=== PATIENT | female | born 1975 | race Caucasian/White ===

== ENCOUNTER → 2016-12-14 | Outpatient (CLI) | payer BC ==
[~2016-12-14] MED LIST: OXYC-57 PO; PRENTAB26 PO
--- NOTE | 2016-12-14 15:16 | DIAGNOSTIC IMAGING REPORT ---
OBSTETRICAL ULTRASOUND, TRANSABDOMINAL AND TRANSVAGINAL CLINICAL HISTORY: . Vaginal bleeding. Assess for ectopic . COMPARISON STUDY: None. FINDINGS: The uterus is retroflexed. Small bilateral ovarian cysts. Normal color flow to the bilateral ovaries. No pelvic free fluid. There is a single intrauterine gestational sac, yolk sac, and pole. The crown-rump length is 9.3 mm consistent with a 7 week and 0 day fetus. The heart rate was 143 bpm. IMPRESSION: A single viable 7 week and 0 day intrauterine gestation. heart rate was 143 bpm. Electronically signed by: Henry Klein M.D. 12/14/2016 3:15 PM Dictated Date/Time: 12/14/2016 3:12 PM
== END | disposition home or self-care (01) ==
LOC: C.ULTR 13:52
PROVIDERS: ATTEND Obstetrics & Gynecology
DX: O20.9 Hemorrhage in early pregnancy, unspecified (principal); Z3A.01 Less than 8 weeks gestation of pregnancy

== ENCOUNTER → 2016-12-28 | Outpatient (CLI) | payer BC ==
[2016-12-28 14:21] LABS: URINE APPEARANCE CLEAR (CLEAR); URINE BILIRUBIN NEG (NEG); URINE COLOR YELLOW; URINE NITRITE NEG (NEG); UROBILINOGEN NEG (NEG)
[2016-12-28 14:25] LABS: MANUAL MICROSCOPIC REQUIRED? NO; REVIEW REQ? NO
[2017-01-01 15:12] LABS: CHLAMYDIA TRACH RNA*** NOT DETECTED (NOT DETECTED); GC (NEIS GONORRHOEAE)RNA** NOT DETECTED (NOT DETECTED)
== END | disposition home or self-care (01) ==
LOC: C.LABSPEC 13:34
PROVIDERS: ATTEND Obstetrics & Gynecology
DX: O09.529 Supervision of elderly multigravida, unspecified trimester (principal)

== ENCOUNTER → 2017-01-03 | Outpatient (CLI) | payer BC ==
[2017-01-03 09:47] LABS: BASO % 0.4 %; BASO ABS # 0.02 K/uL (0-0.2); COMPLETE YES; EOS % 1.5 %; HEMATOCRIT 37.2 % (37-47); IG% 0.2 %; LYMPH % 28.3 %; LYMPH ABS # 1.32 K/uL (1.2-3.4); MEAN CELL VOLUME 90.1 fL (80-100); MEAN CORPUSCULAR HEMOGLOBIN 30.5 pg (25-34); MEAN CORPUSCULAR HGB CONC 33.9 g/dl (32-36); MEAN PLATELET VOLUME 9.3 fL (7.4-10.4); MONO % 11.3 %; NEUT % 58.3 %; PLATELET COUNT 261 K/uL (130-400); RED BLOOD COUNT 4.13 M/uL (4.2-5.4); WHITE BLOOD COUNT 4.67 K/uL (4.8-10.8)
== END | disposition home or self-care (01) ==
LOC: C.LAB 06:33
PROVIDERS: ATTEND Obstetrics & Gynecology
DX: O09.529 Supervision of elderly multigravida, unspecified trimester (principal); Z3A.00 Weeks of gestation of pregnancy not specified

== ENCOUNTER → 2017-02-22 | Outpatient (CLI) | payer BC ==
[2017-02-22 13:13] LABS: BASO % 0.2 %; BASO ABS # 0.01 K/uL (0-0.2); COMPLETE YES; EOS % 0.5 %; HEMATOCRIT 32.1 % (37-47); IG% 0.2 %; LYMPH % 28.1 %; LYMPH ABS # 1.63 K/uL (1.2-3.4); MEAN CELL VOLUME 91.2 fL (80-100); MEAN CORPUSCULAR HEMOGLOBIN 30.1 pg (25-34); MEAN PLATELET VOLUME 8.6 fL (7.4-10.4); PLATELET COUNT 246 K/uL (130-400); RED BLOOD COUNT 3.52 M/uL (4.2-5.4)
[2017-02-22 14:00] LABS: FERRITIN 312.5 ng/ml (8.0-388.0)
[2017-02-22 14:22] LABS: GTGD 50 Grams
== END | disposition home or self-care (01) ==
LOC: C.LAB1850 11:44
PROVIDERS: ATTEND Obstetrics & Gynecology
DX: O09.529 Supervision of elderly multigravida, unspecified trimester (principal); Z3A.00 Weeks of gestation of pregnancy not specified; E55.9 Vitamin D deficiency, unspecified; E61.1 Iron deficiency

== ENCOUNTER → 2017-05-07 | Outpatient (CLI) | payer BC ==
[2017-05-07 16:29] LABS: URINE APPEARANCE CLEAR (CLEAR); URINE BILIRUBIN NEG (NEG); URINE COLOR YELLOW; URINE EPITHELIAL CELL AUTO >30 /lpf (0-5); URINE NITRITE NEG (NEG); URINE PH 6.5 (4.5-7.5); URINE SPECIFIC GRAVITY 1.016 (1.000-1.030); UROBILINOGEN NEG (NEG)
[2017-05-07 16:30] LABS: MANUAL MICROSCOPIC REQUIRED? NO; REVIEW REQ? NO
== END | disposition home or self-care (01) ==
LOC: C.LABSPEC 15:54
PROVIDERS: ATTEND Obstetrics & Gynecology
DX: O09.523 Supervision of elderly multigravida, third trimester (principal)

== ENCOUNTER → 2017-05-07 | Outpatient (CLI) | payer BC ==
[2017-05-07 14:38] LABS: HEMATOCRIT 31.9 % (37-47)
[2017-05-07 15:15] LABS: GTGD 50 Grams
== END | disposition home or self-care (01) ==
LOC: C.LAB1850 13:36
PROVIDERS: ATTEND Obstetrics & Gynecology
DX: O09.523 Supervision of elderly multigravida, third trimester (principal)

== ENCOUNTER → 2017-05-21 | Outpatient (CLI) | payer BC | END | disposition home or self-care (01) | LOC: C.LAB1850 07:32 | PROVIDERS: ATTEND Obstetrics & Gynecology | DX: O28.9 Unspecified abnormal findings on antenatal screening of mother (principal); Z3A.00 Weeks of gestation of pregnancy not specified ==

== ENCOUNTER 2017-07-08 14:07 | Outpatient (CLI) | payer BC ==
[~2017-07-08 14:07] MED LIST changes: -OXYC-57 PO
[2017-07-08] MEDS ORDERED: TERBUTALINE SULFATE 1 MG/ML VIAL SQ ONE (14:30)
--- NOTE | 2017-07-12 11:18 | EDITING REQUIRED CODING QUERY ---
CODING CLARIFICATION A version was noted as being performed in EMR. Please confirm below whether or not this was performed: ( ) Version was performed BRIEF DESCRIPTION: ( x) Version was not performed Attempt made at [facility] but was unsuccessful. ( ) Other, please clarify: Thank you for your assistance, Suzette Wells - Digital Tech
== END 2017-07-08 17:25 | disposition home or self-care (01) ==
LOC: C.OPB 14:07 → C.LD 14:07 → C.OPB 17:25
PROVIDERS: ATTEND Obstetrics & Gynecology
DX: O32.1XX0 Maternal care for breech presentation, not applicable or unspecified (principal); Z3A.00 Weeks of gestation of pregnancy not specified

== ENCOUNTER 2017-07-19 05:31 | Inpatient (IN) | payer BC ==
[2017-07-18 15:07] VITALS: BMI 24.0
[2017-07-18 16:16] LABS: BASO % 0.2 %; BASO ABS # 0.02 K/uL (0-0.2); COMPLETE YES; EOS % 0.7 %; HEMATOCRIT 32.3 % (37-47); IG% 0.5 %; LYMPH % 23.6 %; LYMPH ABS # 2.04 K/uL (1.2-3.4); MEAN CELL VOLUME 90.5 fL (80-100); MEAN CORPUSCULAR HEMOGLOBIN 30.5 pg (25-34); MEAN CORPUSCULAR HGB CONC 33.7 g/dl (32-36); MEAN PLATELET VOLUME 9.1 fL (7.4-10.4); MONO % 5.1 %; NEUT % 69.9 %; PLATELET COUNT 195 K/uL (130-400); RED BLOOD COUNT 3.57 M/uL (4.2-5.4); WHITE BLOOD COUNT 8.65 K/uL (4.8-10.8)
[2017-07-18 16:25] LABS: URINE APPEARANCE CLEAR (CLEAR); URINE BILIRUBIN NEG (NEG); URINE COLOR YELLOW; URINE NITRITE NEG (NEG); UROBILINOGEN NEG (NEG)
[2017-07-18 16:29] LABS: MANUAL MICROSCOPIC REQUIRED? NO; REVIEW REQ? NO
--- NOTE | 2017-07-18 18:23 | HISTORY & PHYSICAL EXAMINATION ---
DATE OF ADMISSION: 07/19/2017 ADMIT DIAGNOSES: 1. Intrauterine at 38 and 4/7th weeks. 2. Elderly multigravida. 3. Carrier of group B strep. 4. Footling breech presentation. 5. History of sudden rupture of membranes with a precipitous delivery in her last in less than an hour. HISTORY OF PRESENT ILLNESS: Belle is a 41-year-old white female 6, para 3-0-2-3, whose EDC is 10-17 by last menstrual period consistent with a first trimester ultrasound. Belle was found to be breech at her 36-week visit. Ultrasound showed this to be double footling breech without nuchal cord. Attempted external cephalic version failed. The has otherwise been uncomplicated. She has advanced maternal at age 41. She had a echo, which would like the baby may have had aortic stenosis, but repeat did not show this. Growth scans have been normal. BARB has been normal. NSTs have been normal. The patient's medical history is significant for 2 precipitous labors. Her first labor in October of 2006 was at 39 weeks 5 hours, delivered a 7 pound 2 ounce male child via . She had a precipitous 37-week delivery with the labor lasting 3 hours in May of 2008. This was a vacuum secondary to intolerance of labor. In 2010, the patient at 37 weeks had a 1-hour labor from onset of rupture to delivery, to deliver a 7 pound 8 ounce male. At that time and currently, the patient lives an hour away. By the time she reached the hospital, she was complete and pushing with her last . The patient and her and I had a long conversation about the risks of precipitous delivery and SROM in the setting of a double footling breech presentation verus the risks of lung maturity. I spoke with [facility] doctors at [place], telling them this situation. They noted that there was not a strong indication for delivery beforehand, but it would be a patient and physician shared decision making opportunity based on the risks and benefits and the patient's comfort If the patient is with SROM, she is highly likely to rapidly labor and have feet or cord in the vagina by the time she reaches the hospital. The patient is very desirous to not have this happened. We discussed in detail the possible risks of lung immaturity in a baby delivered at less than 39 weeks of gestational age and that technically, I did not have a reason to section her prior to 39 weeks. However, the patient and her , and frankly I, feel that there are risks of possible rupture of membranes precipitous delivery in the setting of a double footling breech presentation, that risk is much larger than the potential risk of prematurity being delivered at 38 and 4/7th weeks. The patient is scheduled for delivery on July 19 at 38 and 4/7th weeks and I am agreeable to perform this procedure. PAST OBSTETRICAL AND GYNECOLOGICAL HISTORY: As noted above. She denies history of sexually transmitted diseases or abnormal Pap smears. She has had a D&E for miscarriage. ALLERGIES: No known drug allergies. MEDICATIONS: vitamin. PAST MEDICAL HISTORY: Significant for depression, but on no current meds and chickenpox. She is otherwise healthy, denying thyroid disease, asthma, heart disease, heart murmur, diabetes, kidney or liver problems. PAST SURGICAL HISTORY: Includes a D&E and wisdom teeth removal. SOCIAL HISTORY: The patient denies tobacco, alcohol or drug use. She lives with her spouse and 3 children. PHYSICAL EXAMINATION: GENERAL: This is a well-developed and well-nourished white female in no acute distress. VITAL SIGNS: Blood pressure 124/82 and weight 160.2 pounds. NECK: Supple without thyromegaly or lymphadenopathy. CHEST: Clear to auscultation bilaterally. CARDIOVASCULAR: Regular rate and rhythm without murmurs, gallops or rubs. BACK: Without costovertebral angle tenderness. ABDOMEN: Soft, gravid and nontender. The patient had a nonstress test, which was reactive. EXTREMITIES: Benign. PELVIC: Deferred. LABORATORY DATA: O negative. Her initially antibody screen was positive, but she received RhoGAM in the Emergency Department on 11/28/2006. Pap negative, rubella immune, and RPR nonreactive. She grew group B strep in her initial urine. Hepatitis negative, HIV negative, chlamydia and gonorrhea cultures negative. GTT at 16 weeks is negative. Her 28-week GTT was 135 with a normal 2-hour GTT. She received another dose of RhoGAM on 05/07/2017 and she received an additional dose of RhoGAM upon a failed attempt at version. ASSESSMENT: Belle is a 41-year-old white female 6, para 3-0-2-3 with a double footling breech presentation, a failed version and a history of precipitous delivery after sudden rupture of membranes within an hour in her last . We had that a long discussion regarding the risks of the potential for sudden rupture of membranes and double footling breech presentation with prolapse of cord and/or feet and the risks of prematurity with doing a section before 39 weeks. As discussed with the above, this was discussed with maternal medicine, who although could not recommend definitely doing a section before 39 weeks, felt that this was a shared decision making process between the patient and the physician evaluating the risks and benefits of each. The patient is much more concerned about the possibility of rupture precipitous labor (she lives over an hour away) and presenting to the hospital with a prolapsed cord or feet and so, she wishes to have a primary section done prior to 39 weeks. We have is planned for July 19 when she will be 38 and 4/7 weeks. The risks of the procedure were discussed with the patient including the risks of anesthesia, bleeding requiring transfusion, infection and poor wound healing, damage to surrounding structures including bowel, bladder, vessels, nerves and ureters with need for further surgery, hospitalization or intervention. Discussed the possibility of injury to the baby. Discussed the possibility of heart attack, blood clot, stroke or that was present with any surgery. The patient clearly understands the risks and benefits of delivery at 38 and 4/7th weeks and section. Consent was reviewed and signed and surgery is planned for July 19.
[~2017-07-19] VITALS: Ht 170.2 cm; Wt 72.6 kg
[2017-07-19] VITALS (15 sets, daily range): BP systolic 102–144; BP diastolic 57–83; PULSE 60–69; TEMP 36.6–36.8; O2SAT 97–100; Ht 170.2 cm; Wt 72.6 kg
[2017-07-19] MEDS ORDERED: LACTATED RINGER'S 1000ML 1,000 ML IV SCH ×3 (05:32→06:00)
[2017-07-19] MEDS ORDERED: CEFAZOLIN IV 2,000 MG in DEXTROSE 5% 50ML IV SCH (06:00)
[2017-07-19] MEDS ORDERED: CITRIC ACID/SODIUM CITRATE 15 ML UDC PO SCH (06:00)
[2017-07-19 06:02] LABS: URINE APPEARANCE CLEAR (CLEAR); URINE BILIRUBIN NEG (NEG); URINE COLOR YELLOW; URINE NITRITE NEG (NEG); URINE PH 6.5 (4.5-7.5); URINE SPECIFIC GRAVITY 1.013 (1.000-1.030); UROBILINOGEN NEG (NEG)
[2017-07-19 06:04] LABS: MANUAL MICROSCOPIC REQUIRED? NO; REVIEW REQ? NO
[2017-07-19 06:28] LABS: BASO % 0.1 %; BASO ABS # 0.01 K/uL (0-0.2); COMPLETE YES; EOS % 0.8 %; HEMATOCRIT 31.8 % (37-47); IG% 0.4 %; LYMPH % 25.8 %; MEAN CELL VOLUME 92.2 fL (80-100); MEAN CORPUSCULAR HEMOGLOBIN 29.6 pg (25-34); MEAN CORPUSCULAR HGB CONC 32.1 g/dl (32-36); MEAN PLATELET VOLUME 8.9 fL (7.4-10.4); MONO % 6.9 %; PLATELET COUNT 190 K/uL (130-400); RED BLOOD COUNT 3.45 M/uL (4.2-5.4); WHITE BLOOD COUNT 7.37 K/uL (4.8-10.8)
[2017-07-19] MEDS ORDERED: MORPHINE SULFATE PF 2MG/2ML SYR ONE (07:27)
[2017-07-19] MEDS ORDERED: PHENYLEPHRINE HCL INJ 10 MG/ML VIAL ONE (07:28)
[2017-07-19] MEDS ORDERED: FENTANYL CITRATE INJ 50 MCG/1 ML 2 ML VIAL ONE (07:28)
[2017-07-19] MEDS ORDERED: OXYTOCIN INJ 10 UNITS/ML VIAL ONE ×2 (07:28→08:05)
[2017-07-19] MEDS ORDERED: ONDANSETRON INJ 2 MG/ML 2 ML VIAL ONE (08:13)
[2017-07-19] MEDS ORDERED: HYDROCORTISONE ACETATE 25 MG SUPP PR PRN (08:30)
[2017-07-19] MEDS ORDERED: BENZOCAINE 20% AER SPR 82.5 GM CAN EXT PRN (08:30)
[2017-07-19] MEDS ORDERED: SUPERCREAM 0.870 % 15GM JAR EXT PRN (08:30)
[2017-07-19] MEDS ORDERED: SENNA 8.6 MG TAB PO PRN (08:30)
[2017-07-19] MEDS ORDERED: MAGNESIUM HYDROXIDE SUSP 30 ML UDC PO PRN (08:30)
[2017-07-19] MEDS ORDERED: LANOLIN OINT EXT PRN ×2 (08:30)
[2017-07-19] MEDS ORDERED: ONDANSETRON INJ 2 MG/ML 2 ML VIAL IV PRN ×2 (08:30→08:45)
--- NOTE | 2017-07-19 08:31 | [facility] Post Operative Brief Note ---
Immediate Operative Summary Operative Date Jul 19, 2017. Pre-Operative Diagnosis IUP 38 4/7 weeks;Double Footling Breech presentation; Desires Sterilization Post-Operative Diagnosis Same Procedure(s) Performed Primary Caesarean Section; Delivery of a live female child at [address] Elizabeth Underwriting Clerks Supervisor Surgeon(s) Dr. Diane Estimated Blood Loss 600 cc Findings DELIVERED VIABLE FEMALE INFANT, APGARS 8,9 AND WEIGHT 6#9 OUNCES.. NORMAL UTERUS AND FALLOPIAN TUBES BILATERALLY. Fluids (cc crystalloids) 2000 ML Specimens cord blood placenta-hold portions of left and right fallopian tubes Drains STRAIGHT TO DRAINAGE, CLEAR YELLOW AT END OF CASE Anesthesia SPINAL Complication(s) None Disposition Recovery Room / PACU Resident Tracking Resident Involvement: Resident Care Provided Care Provided: OB Delivery
[2017-07-19] MEDS ORDERED: NALOXONE HCL INJ 1 MG in SODIUM CHLORIDE 0.9% 1000ML 1,000 ML IV PRN (08:42)
[2017-07-19] MEDS ORDERED: LACTATED RINGER'S 1000ML 500 ML IV PRN (08:42)
[2017-07-19] MEDS ORDERED: SODIUM CHLORIDE 0.9% 1000ML 1,000 ML IV PRN (08:42)
[2017-07-19] MEDS ORDERED: NALOXONE HCL INJ 0.08 MG in SYRINGE 1.8 ML IV PRN (08:42)
[2017-07-19] MEDS ORDERED: MEPERIDINE HCL 25 MG/ML CARP IV PRN (08:45)
[2017-07-19] MEDS ORDERED: DiphenhydrAMINE HCL 50 MG/ML VIAL IV PRN (08:45)
[2017-07-19] MEDS ORDERED: NO NARCOTICS OR SEDATIVES SCH (08:45)
[2017-07-19] MEDS ORDERED: NALBUPHINE HCL INJ 10 MG/ML AMP IV PRN (08:45)
[2017-07-19] MEDS ORDERED: DC INTRASPINAL MORPHINE SCH (08:45)
[2017-07-19] MEDS ORDERED: KETOROLAC TROMETHAMINE 30 MG/ML VIAL IV. PRN (08:45)
[2017-07-19] MEDS ORDERED: EpHEDrine SULFATE INJ 50 MG/ML AMP IV PRN (08:45)
[2017-07-19] MEDS ORDERED: NALOXONE HCL 0.4 MG/1 ML VIAL/CARP IV PRN (08:45)
[2017-07-19] MEDS ORDERED: MoRPHine SULFATE PF 1 MG/ML 10 ML AMP/VIAL EPI PRN (08:45)
[2017-07-19] MEDS ORDERED: MoRPHine SULFATE 2 MG/ML CARP IV PRN (08:45)
[2017-07-19] MEDS: SIMETHICONE 80 MG CHEW PO SCH ×4 (09:00→20:30)
--- NOTE | 2017-07-19 09:20 | OPERATIVE REPORT ---
DATE OF OPERATION: 07/19/2017 PREOPERATIVE DIAGNOSES: 1. Intrauterine at 38 and 4/7th weeks. 2. Double footling breech presentation. 3. History of precipitous labor less than an hour with her last . 4. Advanced maternal age. 5. Desires permanent surgical sterilization. POSTOPERATIVE DIAGNOSES: Same. PROCEDURES: 1. Primary low transverse section. 2. Bilateral modified Shannon tubal ligation. SURGEON: Dr. Elizabeth. PLAYGROUND MONITOR: Shasta Diane, PGY1. ANESTHESIA: Spinal. ESTIMATED BLOOD LOSS: 600 mL. FLUIDS: 2000 mL. URINE OUTPUT: 300 mL of clear yellow urine drained from the bladder at the end of the procedure. HISTORY: Belle is a 6, para 3-0-2-3, who presents to labor and delivery at 38 and 4/7th weeks for primary section with double footling breech presentation. Belle's history is significant for two 37-week deliveries, both precipitous, one was 3 hours and the last one was 1 hour. She ruptured at home and was pushing by the time she reached the hospital. She lives one hour away. Discussed in depth the risks of prematurity versus the risk of rupturing in a double footling breech presentation. She failed an external cephalic version attempt. She desires a section done before 39 weeks because of the stated history. FINDINGS: Viable female infant in double footling breech presentation, Apgars 8 and 9, weight pending. Uterus, tubes, and ovaries were noted to be normal bilaterally. COMPLICATIONS: None. DRAINS: Strong. DISPOSITION: To recovery room in stable condition. DESCRIPTION OF PROCEDURE: The patient was taken to the operating room, where was identified verbally and by bracelet. She was seated on the operating table, where spinal anesthetic was placed. She was then placed in dorsal supine position with a leftward tilt. A Strong catheter was placed. The patient was prepped and draped in normal sterile fashion. Her anesthetic was tested and found to be adequate. Time-out was held. A Pfannenstiel skin incision was made with the knife. This was taken down to the underlying layer of fascia with Bovie cautery. Bleeding was attended to with Bovie electrocautery. The fascia was incised in the midline with cautery and taken out laterally with scissors. The superior edge of the fascial incision was grasped, elevated and the underlying layer of rectus muscle was taken off bluntly and with scissors. In a similar fashion, the inferior edge of the fascial incision was grasped, elevated and the underlying layer of rectus muscle was taken off bluntly and with scissors. The muscles were bluntly and sharply in the midline. The peritoneum was entered sharply with scissors and taken superiorly and inferiorly with good visualization of the bladder. The bladder blade was placed. The vesicouterine peritoneum was identified and entered with scissors and taken out laterally with scissors. The bladder flap was created digitally. The bladder blade was placed. Hysterotomy incision was made with the knife. The uterine cavity was entered with a snap. Clear fluid was noted. The incision was stretched with the sound truck operator's fingers. The sound truck operator's hand was placed into the uterus and the feet were grasped and delivered through the hysterotomy incision. The fetus was turned to back down and was rotated to the right and the right arm was reduced and the left arm was reduced. Then, using a Cvkwrtkxe-Ipblplq-Mgud maneuver and fundal pressure, the head was delivered. There was an immediate cry. The nose and mouth were bulb suctioned. The cord was clamped and cut. The was taken off to the awaiting jet inspector for drying and attention. Cord blood and segment were obtained. Placenta was manually extracted. The uterus was exteriorized and cleared of all clot and debris with moistened laparotomy sponges. The hysterotomy incision was repaired in 2 layers, the first in a running locked layer and the second in an imbricating layer of 0 Vicryl. Attention was then turned to the tubes, where first on the right and then on the left, a knuckle of tube was grasped with a Konstantin and then using 2-0 plain gut suture, two sutures were placed around a knuckle of tube. The tube was removed with scissors. The base was attended to with Bovie electrocautery. This was then again performed on the left. The hysterotomy incision was again inspected and found to be intact and the uterus was reanteriorized. The hysterotomy incision was again inspected and found to be intact. There was some oozing on some vessels on the lower uterine segment that were attended to with Bovie electrocautery and hemostasis was assured. The tubal sites were again inspected and sutures were found to be intact and hemostasis was adequate. The rectus muscles were reapproximated in midline with interrupted sutures of 0 Vicryl. The fascia was reapproximated using 0 Vicryl meeting in the midline. Subcuticular tissue was copiously irrigated with warm saline. Hemostasis was attended to with Bovie electrocautery until assured. The skin was then closed with 4-0 stitch of Vicryl. All sponge, lap and needle counts were correct x2. The patient tolerated the procedure well and was taken to recovery room in stable condition. I attest to the content of the Intraoperative Record and any orders documented therein. Any exceptions are noted below. MTDD
--- NOTE | 2017-07-19 09:25 | Anesthesiology Progress Note ---
Anesthesia Post Op Note Date & Time Jul 19, 2017 at 09:24 Notes Mental Status: alert / awake / arousable, participated in evaluation Pt Amnestic to Procedure: Yes Nausea / Vomiting: adequately controlled Pain: adequately controlled Airway Patency, RR, SpO2: stable & adequate BP & HR: stable & adequate Hydration State: stable & adequate Neuraxial Anesthesia: was administered, sensory block is resolving Anesthetic Complications: no major complications apparent
[2017-07-19] MEDS: OXYTOCIN INJ 20 UNITS in LACTATED RINGER'S 1000ML 1,000 ML IV SCH ×2 (12:23→20:45)
--- NOTE | 2017-07-19 15:28 | Discharge Instructions ---
Discharge Instructions Date of Service Jul 19, 2017. Admission Reason for Admission: Breech Presentation Discharge Discharge Diagnosis / Problem: DELIVERY Discharge Goals Goal(s): Routine recovery after Medications Continue Dispensed Medications: supercream, dermaplast, tucks, lansinoh Activity Recommendations Activity Limitations: per Instructions/Follow-up section . Instructions / Follow-Up Instructions / Follow-Up ACTIVITY RECOMMENDATIONS: * Gradual return to full activity over the next 2-3 weeks. * No lifting - nothing heavier than baby over the next 2-3 weeks. * Do not engage in vigorous exercise, sexual activity or sports until cleared by your physician. * Do not drive or operate any motorized equipment until cleared by your physician. * You may shower/bathe daily. MEDICATIONS: For discomfort or pain, you may use Acetaminophen (Tylenol), Ibuprofen (Advil), or Naproxen (Aleve) following the package directions. For constipation you may use Colace following the package directions. BREAST CARE: If you are not breast feeding: * Wear a supportive bra 24 hours a day for one to two weeks. * Avoid stimulating your breasts and nipples as much as possible during the first few weeks after delivery. * When taking a shower, have the warm water hit your back, not breasts. * When your breasts feel full, apply ice packs. Usually three to four times a day helps ease the discomfort. * Take a mild pain medication (Tylenol / Motrin) when you are uncomfortable. If breast feeding: * Use breast milk to lubricate nipples. Lansinoh cream may be used for sore nipples. You do not need to remove cream prior to breast feeding. If using a different brand of cream, check the label for directions regarding removal of cream prior to nursing. * Wear a supportive bra. * If having problems with breasts or breast feeding, call a solutions consultant or your health care provider. SPECIAL CARE INSTRUCTIONS: When you are discharged from the hospital, it is important for you to follow the instructions listed below: * During the first week at home, you should be able to care for yourself and your baby. In addition, the usual light household activities are encouraged. * Limit your activities to the way you feel. Do not try to clean the house or move furniture. Be sensible. * If you actively engage in sports and have done so up until the time of your delivery, you may resume these activities as soon as you feel able. This may take up to one month or even longer. Use good judgment. * Continue to take your vitamins for at least six weeks after the of your baby. * Your diet need not be limited unless you were on a special diet before your delivery. Breast-feeding mothers need around 2500 calories per day and at least 64-80 ounces of fluid per day (8 to 10 glasses). * You should eat foods from the four major food groups. Crash diets or fad diets are to be avoided. Eating lean meats, fresh fruits and vegetables, low-fat dairy products, high fiber foods and a regular exercise program, will help you get back to your pre- weight without putting your health at risk. * Constipation is sometimes a problem after delivery. Take a mild laxative as needed. If breast feeding, Milk of Magnesia is acceptable to use. You may use a suppository or Fleets enema. * A daily shower or tub bath is suggested. Wash incision daily with warm soapy water and pat dry. It doesn't need to be covered unless drainage is present. * A bloody vaginal discharge will usually continue until around four weeks . A small amount of bleeding may continue for as long as six weeks. Vaginal discharge changes from the bright red bleeding after delivery to pink then brownish and finally yellowish-pink before becoming white and disappearing. * Bleeding may increase with activity. Your first period may come in 4-8 weeks. If you are breast feeding, your period may be delayed even longer. * [place] (sex) can begin whenever both you and your partner feel comfortable and do not have any form of genital infection. It is recommended that you wait at least six weeks for internal and external healing to occur. If you have questions, please talk to your health care practitioner. A condom should be used to prevent infection and . * Foreplay, gentle intercourse and lubrication is very important the first several times to prevent pain. A water-based lubricant such as K-Y jelly or Astroglide may be used. * If you have RH negative blood and your baby is RH positive, you will receive RHOGAM by injection prior to discharge. The nurse will give you a card to keep with you that has the date and place that you received RHOGAM after delivery. * During your care, you had a Rubella screen done to check for the presence of rubella antibodies in your blood. If your test was negative, you will receive a Rubella vaccine prior to discharge. This vaccine may cause a fever, soreness at the injection site and flu-like symptoms. If these symptoms persist, notify your health care practitioner. is not advised for one month after a Rubella vaccine. * Verbalizes understanding of car seat law as reviewed with patient nursing. * Car Seat hand-out given and reviewed with patient by nursing. * Shaken baby information reviewed with patient by nursing. Call you doctor if: * Heavy bleeding (saturating several pads an hour) or passing clots the size of your fist. * A fever >101 degrees F (38.3 degrees C) on two occasions four hours apart and /or chills. * Unusual pain in the pelvic or vaginal areas. * Call the doctor for any increased redness, drainage or swelling around the incision and any pain unrelieved by prescribed pain medication. * "Baby Blues" lasting longer than two weeks. If you have any questions or concerns, call your health care practitioner at . FOLLOW UP VISIT: * Please call the office at to schedule a 6 week examination. It is important you keep this appointment. It is important for you to make arrangements for either yearly or twice yearly check-ups thereafter. Current Hospital Diet Patient's current hospital diet: Clear Liquid Diet Discharge Diet Recommended Diet: Regular Diet Procedures Procedures Performed: Primary Caesarean Section; Delivery of a live female child at 0757 Pending Studies Studies pending at discharge: no Medical Emergencies . Who to Call and When: Medical Emergencies: If at any time you feel your situation is an emergency, please call [phone] immediately. . Non-Emergent Contact Non-Emergency issues call your: Primary Care Provider . . "Provider Documentation" section prepared by Shasta Diane. . VTE Core Measure Inpt VTE Proph given/why not?: SCD's
[2017-07-19] MEDS: DOCUSATE SODIUM 100 MG CAP PO SCH (20:30)
[2017-07-20 00:15] VITALS: O2SAT 98
[2017-07-20 01:15] VITALS: O2SAT 98
[2017-07-20] MEDS ORDERED: KETOROLAC TROMETHAMINE 30 MG/ML VIAL IV. PRN (01:45)
[2017-07-20] MEDS ORDERED: ZOLPIDEM TARTRATE 5 MG TAB PO PRN (01:45)
[2017-07-20] MEDS ORDERED: DiphenhydrAMINE HCL 50 MG/ML VIAL IV PRN (01:45)
[2017-07-20] MEDS ORDERED: MEPERIDINE HCL 50 MG/ML CARP IV PRN ×2 (01:45)
[2017-07-20] MEDS ORDERED: PROMETHAZINE HCL INJ 25 MG in SODIUM CHLORIDE 0.9% 50ML 50 ML IV PRN (01:45)
[2017-07-20] MEDS ORDERED: OXYCODONE/ACETAMINOPHEN 5-325 TAB PO PRN (01:45)
[2017-07-20 04:20] VITALS: BP 111/70; PULSE 76; TEMP 36.8
[2017-07-20 06:51] LABS: BASO % 0.1 %; BASO ABS # 0.01 K/uL (0-0.2); COMPLETE YES; EOS % 0.6 %; HEMATOCRIT 29.3 % (37-47); IG% 0.3 %; LYMPH % 22.3 %; LYMPH ABS # 1.76 K/uL (1.2-3.4); MEAN CELL VOLUME 88.5 fL (80-100); MEAN CORPUSCULAR HEMOGLOBIN 30.5 pg (25-34); MEAN CORPUSCULAR HGB CONC 34.5 g/dl (32-36); MEAN PLATELET VOLUME 8.7 fL (7.4-10.4); MONO % 5.6 %; NEUT % 71.1 %; PLATELET COUNT 164 K/uL (130-400); RED BLOOD COUNT 3.31 M/uL (4.2-5.4)
--- NOTE | 2017-07-20 08:06 | Progress Note ---
Subjective Jul 20, 2017. Subjective conversation w/ patient, physical exam, chart review, lab review Ambulation: limited ambulation Voiding: no voiding problems Passing Gas: Yes Diet Tolerance: Regular Diet Lochia: Moderate Feeding Type: Breast Feeding Pain: controlled Review of Systems Respiratory: No shortness of breath Cardiac: No chest pain Abdomen: No nausea, No vomiting Female : No dysuria Objective Vital Signs Date Time Temp Pulse Resp B/P (MAP) Pulse Ox O2 Delivery O2 Flow Rate FiO2 07/20/17 04:20 36.8 76 16 111/70 (84) Room Air 07/20/17 01:15 16 98 07/20/17 00:15 16 98 07/19/17 23:45 99 Room Air 07/19/17 23:45 36.8 69 16 102/57 (72) 99 Room Air 07/19/17 23:15 16 97 07/19/17 22:15 16 97 07/19/17 21:15 16 98 07/19/17 20:15 16 100 07/19/17 20:15 36.6 65 16 106/63 (77) 100 Room Air 07/19/17 19:15 16 98 07/19/17 18:15 18 99 07/19/17 17:15 18 99 07/19/17 16:15 18 100 07/19/17 15:50 98 Room Air 07/19/17 15:50 36.7 60 18 113/70 (84) 98 Room Air 07/19/17 15:15 16 98 07/19/17 14:25 16 99 07/19/17 13:30 16 97 07/19/17 12:25 16 98 07/19/17 11:25 16 99 07/19/17 11:25 36.7 65 16 144/83 (103) 99 Room Air 07/19/17 11:25 99 Room Air 07/19/17 11:25 99 Room Air Physical Exam General Appearance: WELL-APPEARING, WD/WN, NO APPARENT DISTRESS Respiratory/Chest: lungs clear, normal breath sounds, no respiratory distress Cardiovascular: regular rate, rhythm, no gallop Abdomen: normal bowel sounds, soft Fundus: Firm, Tender (appropriately tender), Relation to Umbilicus (at level of U) Incision Description: Clean, Dry & Intact Extremities: no calf tenderness Laboratory Results Last 24 Hours Test 07/20/17 06:37 White Blood Count 7.90 K/uL Red Blood Count 3.31 M/uL Hemoglobin 10.1 g/dL Hematocrit 29.3 % Mean Corpuscular Volume 88.5 fL Mean Corpuscular Hemoglobin 30.5 pg Mean Corpuscular Hemoglobin Concent 34.5 g/dl Platelet Count 164 K/uL Mean Platelet Volume 8.7 fL Neutrophils (%) (Auto) 71.1 % Lymphocytes (%) (Auto) 22.3 % Monocytes (%) (Auto) 5.6 % Eosinophils (%) (Auto) 0.6 % Basophils (%) (Auto) 0.1 % Neutrophils # (Auto) 5.62 K/uL Lymphocytes # (Auto) 1.76 K/uL Monocytes # (Auto) 0.44 K/uL Eosinophils # (Auto) 0.05 K/uL Basophils # (Auto) 0.01 K/uL RDW Standard Deviation 50.2 fL RDW Coefficient of Variation 15.4 % Immature Granulocyte % (Auto) 0.3 % Immature Granulocyte # (Auto) 0.02 K/uL Assessment and Plan Post-Op Day#: 1 Continue Routine Care: - Vital Signs reviewed and WNL. - Hgb 10.1 (yesterday 10.2. On admission was 10.9.) - Blood Type: O-, GBS + , Rubella Immune. - Monitor and Control pain with Motrin PRN, resume regular diet as tolerated, Monitor Lochia. - Encourage breast feeding. - Pt is doing well clinically. - Continue routine post op care. SIMIN DIANE PGY1 RESIDENT Resident Physician Supervision Note: I was present with Dr. Diane during the history and exam. I discussed the case with the resident and agree with the findings and plan as documented in the note. Any exceptions or clarifications are listed here: POD#1 s/p c- section for breech. Doing well. Continue routine postop care. Documented By: Yamini Stanley Resident Tracking Resident Involvement: Resident Care Provided Care Provided: OB Delivery
[2017-07-20] MEDS: DOCUSATE SODIUM 100 MG CAP PO SCH ×2 (08:25→20:19)
[2017-07-20] MEDS: FERROUS SULFATE 325 MG TAB PO SCH (08:25)
[2017-07-20] MEDS: SIMETHICONE 80 MG CHEW PO SCH ×4 (08:26→20:19)
[2017-07-20] MEDS: PRENATAL VITAMIN TAB PO SCH (08:26)
[2017-07-20 08:53] VITALS: BP 106/66; PULSE 83; TEMP 36.4; O2SAT 96
[2017-07-20 08:55] VITALS: O2SAT 96
[2017-07-20] MEDS: OXYCODONE/ACETAMINOPHEN 5-325 TAB PO PRN ×2 (11:57→16:05)
[2017-07-20] MEDS: IBUPROFEN 600 MG TAB PO PRN ×3 (11:57→20:19)
[2017-07-20 16:37] VITALS: BP 112/58; PULSE 66; TEMP 36.7; O2SAT 97
[2017-07-20] MEDS ORDERED: BISACODYL 5 MG TABEC PO ONE (22:00)
[2017-07-21] VITALS: BP 122/70; PULSE 64; TEMP 36.7; O2SAT 97
[2017-07-21 06:57] LABS: HEMATOCRIT 31.7 % (37-47)
[2017-07-21] MEDS: SIMETHICONE 80 MG CHEW PO SCH ×3 (07:55→17:49)
[2017-07-21] MEDS: IBUPROFEN 600 MG TAB PO PRN ×2 (07:55→12:49)
[2017-07-21] MEDS: PRENATAL VITAMIN TAB PO SCH (07:55)
[2017-07-21] MEDS: DOCUSATE SODIUM 100 MG CAP PO SCH (07:55)
[2017-07-21] MEDS: FERROUS SULFATE 325 MG TAB PO SCH (07:55)
[2017-07-21 08:00] VITALS: BP 143/82; PULSE 69; TEMP 36.6; O2SAT 97
[2017-07-21] MEDS ORDERED: BISACODYL 10 MG SUPP PR PRN (08:30)
[2017-07-21] MEDS ORDERED: OXYC-57 PO (09:21)
--- NOTE | 2017-07-21 09:21 | Progress Note ---
Subjective Jul 21, 2017. Subjective conversation w/ patient, physical exam, lab review Ambulation: ambulating normally Voiding: no voiding problems Passing Gas: Yes Diet Tolerance: Regular Diet Lochia: Small Feeding Type: Breast Feeding Pain: controlled with oral pain meds Objective Vital Signs Date Time Temp Pulse Resp B/P (MAP) Pulse Ox O2 Delivery O2 Flow Rate FiO2 07/21/17 08:00 Room Air 07/21/17 08:00 36.6 69 16 143/82 (102) 97 Room Air 07/21/17 00:00 Room Air 07/21/17 00:00 36.7 64 16 122/70 (87) 97 Room Air 07/20/17 16:37 36.7 66 14 112/58 (76) 97 Room Air 07/20/17 16:00 Room Air Physical Exam General Appearance: WELL-APPEARING, WD/WN, NO APPARENT DISTRESS Respiratory/Chest: lungs clear, normal breath sounds Cardiovascular: regular rate, rhythm Abdomen: normal bowel sounds, non tender, soft Fundus: Firm, Non-Tender, Relation to Umbilicus (at u) Incision Description: Clean, Dry & Intact Extremities: non-tender, normal inspection Laboratory Results Last 24 Hours Test 07/21/17 06:39 Hemoglobin 10.1 g/dL Hematocrit 31.7 % Assessment and Plan Post-, Post-Op Day#: 2 Continue Routine Care: Doing well. Plan d/c. Instructions given.
[2017-07-21] MEDS: OXYCODONE/ACETAMINOPHEN 5-325 TAB PO PRN (14:40)
[2017-07-21 16:15] VITALS: BP 127/76; PULSE 65; TEMP 36.9
[2017-07-21 19:00] VITALS: BP_DIAS 76; PULSE 65; TEMP 36.9
--- NOTE | 2017-07-23 21:45 | DISCHARGE SUMMARY ---
ADMISSION DIAGNOSES: 1. Intrauterine at 38 and 4/7 weeks. 2. Elderly multigravida. 3. Carrier of group B strep. 4. Double footling breech presentation. 5. History of spontaneous rupture of membranes with a precipitous delivery in less than an hour in her last . 6. Desires permanent surgical sterilization. DISCHARGE DIAGNOSES: Same. PROCEDURES: Primary lower transverse section and bilateral modified Wandy tubal ligation. HISTORY OF PRESENT ILLNESS: Belle is a 41-year-old white female 6, para 3-0-2-3, whose EDC is 08/13/2017 by last menstrual period consistent with a first trimester ultrasound. Belle was found to be breech at her 36 week visit. Ultrasound showed this to be double footling breech without nuchal cord. Attempted external cephalic version failed. The is otherwise uncomplicated. She has advanced maternal age of 41. She had a echo which showed a questionable aortic stenosis but repeat showed normal. Growth scans have been normal. BARB and normal. NSTs normal. The patient's history is significant for a precipitous labor with rupture of membranes and not in arriving at the hospital after her hours drive from her home, being complete and pushing. She has done another similar delivery in 3 hours. The patient is very concerned about precipitous labor in living an hour from the hospital. Therefore, she is acceptable to the risks of prematurity, doing a section at 38 and 4/7 weeks. For the rest of patient's detailed history and physical, please see her dictated history and physical. ASSESSMENT: This is a 6, para 3-0-2-3 with presentation of a double footling breech presentation, history of precipitous labor and delivery, and desire for permanent surgical sterilization. HOSPITAL COURSE: The patient was admitted and underwent a primary low transverse section and bilateral modified Wandy tubal ligation. She delivered a viable female in double footling breech presentation with Apgars of 8 and 9. Normal uterus, tubes, and ovaries were noted bilaterally. The patient's postoperative course was uncomplicated. She tolerated a regular diet, voided after the removal of her Strong catheter, ambulated without difficulty, had her pain well controlled with oral pain medications. She was discharged home on postoperative day #2. Her H&H on discharge was 10.1 and 31.7. She will return in 6 weeks for check.
== END 2017-07-21 19:25 | disposition home or self-care (01) | DRG 766 ==
LOC: C.LD 05:31 → EDSTATUS 07:30 → C.OBG 11:41
PROVIDERS: ADMIT Obstetrics & Gynecology; ATTEND Obstetrics & Gynecology
PROC: 0UL70ZZ Occlusion of Bilateral Fallopian Tubes, Open Approach (ICD-10-PCS; principal; 2017-07-19 07:30)
PROC: 10D00Z1 Extraction of Products of Conception, Low, Open Approach (ICD-10-PCS; principal; 2017-07-19 07:30)
DX: O32.8XX0 Maternal care for other malpresentation of fetus, not applicable or unspecified (principal); O99.824 Streptococcus B carrier state complicating childbirth; O09.523 Supervision of elderly multigravida, third trimester; Z3A.38 38 weeks gestation of pregnancy; Z37.0 Single live birth; Z87.59 Personal history of other complications of pregnancy, childbirth and the puerperium; Z30.2 Encounter for sterilization

== ENCOUNTER → 2017-08-14 | Outpatient (CLI) | payer BC ==
[~2017-08-14] MED LIST changes: +OXYC-57 PO
[2017-08-14 13:18] LABS: HEMATOCRIT 41.6 % (37-47); MEAN CELL VOLUME 89.3 fL (80-100); MEAN CORPUSCULAR HGB CONC 32.5 g/dl (32-36); MEAN PLATELET VOLUME 9.4 fL (7.4-10.4); PLATELET COUNT 271 K/uL (130-400); RED BLOOD COUNT 4.66 M/uL (4.2-5.4); WHITE BLOOD COUNT 7.16 K/uL (4.8-10.8)
[2017-08-14 13:58] LABS: FERRITIN 174.5 ng/ml (8.0-388.0)
== END | disposition home or self-care (01) ==
LOC: C.LAB1850 12:00
DX: E55.9 Vitamin D deficiency, unspecified (principal); E61.1 Iron deficiency

== ENCOUNTER → 2017-09-05 | Outpatient (CLI) | payer BC | END | disposition home or self-care (01) | LOC: C.PAPS 11:23 | PROVIDERS: ATTEND Obstetrics & Gynecology | DX: Z01.419 Encounter for gynecological examination (general) (routine) without abnormal findings (principal); R87.615 Unsatisfactory cytologic smear of cervix ==